=== PATIENT | male | born 2000 | race Hispanic/Latino ===

== ENCOUNTER 2022-12-07 23:31 | Emergency (ER) | payer OTHER ==
[~2022-12-07] VITALS: Ht 185.4 cm; Wt 117.9 kg
[2022-12-08] MEDS ORDERED: IBUPROFEN 600 MG TABLET PO ONE
[2022-12-08 00:52] VITALS: BP 113/65
== END 2022-12-08 00:54 | disposition home or self-care (01) ==
LOC: EDH 23:31
DX: S93.401A Sprain of unspecified ligament of right ankle, initial encounter (principal); S93.601A Unspecified sprain of right foot, initial encounter; W18.39XA Other fall on same level, initial encounter; Y93.67 Activity, basketball; Y92.89 Other specified places as the place of occurrence of the external cause; Y99.8 Other external cause status
CPT/HCPCS: 73610; 73630